=== PATIENT | male | born 1975 | race Caucasian/White ===

== ENCOUNTER → 2019-07-09 | Outpatient (CLI) | payer OTHER ==
[2019-07-09 12:13] LABS: ALBUMIN 4.4 g/dL (3.5-5.0)
[2019-07-09 12:14] LABS: CALCIUM 9.9 mg/dL (8.3-10.5)
[2019-07-09 12:16] LABS: TOTAL PROTEIN 8.1 g/dL (6.4-8.3)
[2019-07-09 12:18] LABS: TOTAL BILIRUBIN 0.3 mg/dL (0.2-1.2)
[2019-07-09 13:04] LABS: EOS # 0.2 (0.04-0.40); EOS % 2.8 % (0.0-4.0); HEMATOCRIT 46.1 % (42.0-52.0); HEMOGLOBIN 15.2 g/dL (13.5-18.0); LYMPH# 2.2 (1.50-4.00); MEAN CELL VOLUME 87 fl (78-100); MEAN CORPUSCULAR HEMOGLOBIN 29 pg (27-31); MEAN CORPUSCULAR HGB CONC 33 g/dL (33-37); MEAN PLATELET VOLUME 10.1 fl (7.4-10.4); MONO # 0.6 (0.20-0.80); NEU # 5.3 (1.40-6.50); PLATELET COUNT 317 K/mm3 (130-400); RED BLOOD COUNT 5.28 M/mm3 (4.20-5.60); RED CELL DISTRIBUTION WIDTH 14.3 % (11.5-14.5); WHITE BLOOD COUNT 8.3 K/mm3 (4.8-10.8)
== END ==
LOC: LAB 11:52
PROVIDERS: Family Medicine
DX: Z00.00 Encounter for general adult medical examination without abnormal findings (principal); Z13.220 Encounter for screening for lipoid disorders; R53.83 Other fatigue

== ENCOUNTER → 2019-08-09 | Day surgery (SDC) | payer OTHER | LOC: MSO 08:46 | DX: Z12.11 Encounter for screening for malignant neoplasm of colon (principal); Z86.010 Personal history of colon polyps; K57.30 Diverticulosis of large intestine without perforation or abscess without bleeding; Z80.0 Family history of malignant neoplasm of digestive organs; F41.9 Anxiety disorder, unspecified; F32.9 Major depressive disorder, single episode, unspecified; E66.9 Obesity, unspecified; Z79.899 Other long term (current) drug therapy; Z98.52 Vasectomy status | CPT/HCPCS: 00812; J2405; J2704; J7120 ==

== ENCOUNTER → 2019-08-20 | Outpatient (CLI) | payer OTHER | LOC: RAD 09:22 | DX: M41.85 Other forms of scoliosis, thoracolumbar region (principal); M51.36 Other intervertebral disc degeneration, lumbar region; M41.82 Other forms of scoliosis, cervical region ==

== ENCOUNTER → 2019-12-10 | Outpatient (CLI) | payer OTHER | LOC: CARDLAB 12-01 16:25 → CARDREHAB 15:05 → CARDLAB 16:45 | DX: R06.83 Snoring (principal) | CPT/HCPCS: G0399 ==

== ENCOUNTER → 2020-10-09 | Outpatient (CLI) | payer OTHER ==
[2020-10-09 16:55] LABS: EOS # 0.1 (0.04-0.40); EOS % 1.5 % (0.0-4.0); HEMATOCRIT 46.8 % (42.0-52.0); LYMPH# 2.6 (1.50-4.00); MEAN CELL VOLUME 87 fl (78-100); MEAN CORPUSCULAR HEMOGLOBIN 28 pg (27-31); MEAN CORPUSCULAR HGB CONC 32 g/dL (33-37); MEAN PLATELET VOLUME 9.6 fl (7.4-10.4); MONO # 0.6 (0.20-0.80); NEU # 5.7 (1.40-6.50); PLATELET COUNT 330 K/mm3 (130-400); RED BLOOD COUNT 5.37 M/mm3 (4.20-5.60); RED CELL DISTRIBUTION WIDTH 13.9 % (11.5-14.5); WHITE BLOOD COUNT 9.1 K/mm3 (4.8-10.8)
[2020-10-09 16:56] LABS: POTASSIUM 3.7 mmol/L (3.5-5.1)
[2020-10-09 16:57] LABS: ALBUMIN 4.2 g/dL (3.5-5.0)
[2020-10-09 16:58] LABS: CALCIUM 8.9 mg/dL (8.3-10.5)
[2020-10-09 16:59] LABS: TOTAL PROTEIN 7.5 g/dL (6.4-8.3)
[2020-10-09 17:01] LABS: TOTAL BILIRUBIN 0.2 mg/dL (0.2-1.2)
== END ==
LOC: LAB 16:22
PROVIDERS: Family Medicine
DX: E78.5 Hyperlipidemia, unspecified (principal)

== ENCOUNTER → 2020-12-13 | Outpatient (CLI) | payer BC | LOC: LAB 08:36 → RAD 08:36 | DX: E29.1 Testicular hypofunction (principal); M25.561 Pain in right knee ==

== ENCOUNTER → 2021-01-17 | Outpatient (CLI) | payer BC | LOC: RAD 15:40 | DX: F48.2 Pseudobulbar affect (principal) ==